=== PATIENT | male | born 1970 | race Caucasian/White ===

== ENCOUNTER 2023-01-29 21:18 | Inpatient (IN) | payer OTHER ==
[2023-01-29 22:17] VITALS: BMI 36.3
[2023-01-30] MEDS ORDERED: ACETAMINOPHEN 325 MG TABLET (FP) PO PRN (08:47)
[2023-01-30] MEDS ORDERED: POLYETHYLENE GLYCOL (HEALTHYLAX) 3350 17 GM PACKET PO PRN (08:47)
[2023-01-30] MEDS ORDERED: ONDANSETRON *ODT* 4 MG TABLET SL PRN (08:47)
[2023-01-30] MEDS ORDERED: NALOXONE HCL 0.4 MG/ML VIAL IM PRN (08:47)
[2023-01-30] MEDS ORDERED: IBUPROFEN 600 MG TABLET (FP) PO PRN (08:47)
[2023-01-30] MEDS ORDERED: LOPERAMIDE HCL 2 MG CAPSULE PO PRN (08:47)
[2023-01-30] MEDS ORDERED: IBUPROFEN 400 MG TABLET (FP) PO PRN (08:47)
[2023-01-30] MEDS ORDERED: MAG HYDROX/AL HYDROX/SIMETH 30 ML UNIT-DOSE CUP PO PRN (08:47)
[2023-01-30] MEDS ORDERED: NICOTINE POLACRILEX 2 MG GUM BUC PRN (08:47)
[2023-01-30] MEDS ORDERED: guaiFENesin 600 MG TABLET.ER (FP) PO PRN (08:47)
[2023-01-30] MEDS ORDERED: NALOXONE HCL (KLOXXADO) 8 MG SPRAY NS PRN (08:47)
[2023-01-30] MEDS ORDERED: BENZOCAINE/MENTHOL (CHLORASEPTIC ) LOZENGE MM PRN (08:47)
[2023-01-30] MEDS ORDERED: BISMUTH SUBSALICYLATE 524 MG/30 ML PO PRN (08:47)
[2023-01-30] MEDS ORDERED: diazePAM 5 MG TABLET PO PRN (08:47)
[2023-01-30] MEDS ORDERED: DICYCLOMINE HCL 10 MG CAPSULE PO PRN (08:47)
[2023-01-30] MEDS ORDERED: BENZONATATE 200 MG CAPSULE PO PRN (08:47)
[2023-01-30] MEDS ORDERED: MAGNESIUM HYDROX 2400MG/30ML ORAL SUSPENSION 30 ML CUP PO PRN (08:47)
[2023-01-30] MEDS ORDERED: NICOTINE 7 MG/24 HOURS TOPICAL PATCH TD ONE (09:49)
[2023-01-30] MEDS ORDERED: PRENATAL VITAMINS W/ FOLIC ACID TABLET (FP) PO ONE (09:50)
[2023-01-30] MEDS: NICOTINE 7 MG/24 HOURS TOPICAL PATCH TD SCH (10:01)
[2023-01-30] MEDS: diazePAM 5 MG TABLET PO SCH ×3 (10:01→22:50)
[2023-01-30] MEDS: PRENATAL VITAMINS W/ FOLIC ACID TABLET (FP) PO SCH (10:01)
[2023-01-30] MEDS ORDERED: diazePAM 5 MG TABLET ONE (10:03)
[2023-01-30] MEDS ORDERED: methaDONE HCL 10 MG TABLET PO ONE (11:00)
[2023-01-30] MEDS ORDERED: diazePAM 5 MG TABLET PO SCH (11:00)
[2023-01-30] MEDS: diazePAM 5 MG TABLET PO PRN (13:18)
[2023-01-30 14:31] LABS: HEMATOCRIT 41.7 % (35.4-49); HEMOGLOBIN 13.6 GM/dL (11.7-16.9); MCH 29.3 pg (25.7-33.7); MCHC 32.6 g/dl (32.0-35.9); MEAN CELL VOLUME 89.9 fl (80-96); MEAN PLT VOLUME 8.4 fl (7.5-11.1); PLATELET COUNT 254 10^3/uL (134-434); RBC 4.64 M/mm3 (4.00-5.60); RDW 14.6 % (11.9-15.9); WHITE BLOOD COUNT 4.3 K/mm3 (4.0-10.0)
[2023-01-30 14:41] LABS: POTASSIUM 4.1 mmol/L (3.5-5.1)
[2023-01-30 15:00] LABS: BILIRUBIN,TOTAL 0.2 mg/dL (0.2-1)
[2023-01-30 15:02] LABS: ALBUMIN 3.2 g/dl (3.4-5.0); BLOOD UREA NITROGEN 11.1 mg/dL (7-18); CALCIUM 8.9 mg/dL (8.5-10.1)
[2023-01-30 15:06] LABS: CREATININE 1.1 mg/dL (0.55-1.3)
[2023-01-30 15:07] LABS: TOT PROT 6.6 g/dl (6.4-8.2)
[2023-01-30] MEDS: hydrOXYzine PAMOATE 25 MG CAPSULE (FP) PO PRN (17:20)
[2023-01-30] MEDS: METHOCARBAMOL 500 MG TABLET PO PRN (17:20)
[2023-01-30 19:00] LABS: HIV INTERPRETATION NEGATIVE (NEGATIVE)
[2023-01-30] MEDS: MELATONIN 5 MG TABLETS PO SCH (22:50)
[2023-01-30] MEDS: THIAMINE HCL 100 MG TABLET (FP) PO SCH (22:50)
[2023-01-31] MEDS: diazePAM 5 MG TABLET PO SCH ×2 (06:04→13:19)
[2023-01-31] MEDS: PRENATAL VITAMINS W/ FOLIC ACID TABLET (FP) PO SCH (10:16)
[2023-01-31] MEDS: diazePAM 5 MG TABLET PO PRN ×2 (10:16→21:08)
[2023-01-31] MEDS: NICOTINE 7 MG/24 HOURS TOPICAL PATCH TD SCH (10:17)
[2023-01-31] MEDS: METHOCARBAMOL 500 MG TABLET PO PRN ×2 (10:17→22:36)
[2023-01-31 14:46] LABS: PH,URINE 5.5 (5.0-8.0); URINE APPEARANCE CLEAR; URINE BILIRUBIN NEGATIVE (NEGATIVE); URINE COLOR DK YELLOW; URINE GLUCOSE (UA) NEGATIVE (NEGATIVE); URINE KETONE TRACE (NEGATIVE); URINE LEUK ESTERASE NEGATIVE (NEGATIVE); URINE NITRITE NEGATIVE (NEGATIVE); URINE PROTEIN NEGATIVE (NEGATIVE)
[2023-01-31] MEDS: hydrOXYzine PAMOATE 25 MG CAPSULE (FP) PO PRN (22:36)
[2023-01-31] MEDS: MELATONIN 5 MG TABLETS PO SCH (22:36)
[2023-01-31] MEDS: THIAMINE HCL 100 MG TABLET (FP) PO SCH (22:36)
[2023-02-01] MEDS: diazePAM 5 MG TABLET PO SCH ×3 (00:10→17:32)
[2023-02-01] MEDS ORDERED: diazePAM 5 MG TABLET PO SCH (06:00)
[2023-02-01] MEDS: NICOTINE 7 MG/24 HOURS TOPICAL PATCH TD SCH (09:26)
[2023-02-01] MEDS: PRENATAL VITAMINS W/ FOLIC ACID TABLET (FP) PO SCH (09:28)
[2023-02-01] MEDS: diazePAM 5 MG TABLET PO PRN ×2 (10:21→20:08)
[2023-02-01] MEDS: THIAMINE HCL 100 MG TABLET (FP) PO SCH (22:25)
[2023-02-01] MEDS: hydrOXYzine PAMOATE 25 MG CAPSULE (FP) PO PRN (22:25)
[2023-02-01] MEDS: MELATONIN 5 MG TABLETS PO SCH (22:25)
[2023-02-02] MEDS ORDERED: diazePAM 5 MG TABLET PO ONE (06:00)
[2023-02-02] MEDS ORDERED: diazePAM 5 MG TABLET PO SCH (06:00)
[2023-02-02] MEDS: PRENATAL VITAMINS W/ FOLIC ACID TABLET (FP) PO SCH (10:21)
[2023-02-02] MEDS: NICOTINE 7 MG/24 HOURS TOPICAL PATCH TD SCH (10:21)
[2023-02-02] MEDS: hydrOXYzine PAMOATE 25 MG CAPSULE (FP) PO PRN ×2 (10:22→22:10)
[2023-02-02] MEDS: METHOCARBAMOL 500 MG TABLET PO PRN (22:10)
[2023-02-02] MEDS: MELATONIN 5 MG TABLETS PO SCH (22:10)
[2023-02-02] MEDS: THIAMINE HCL 100 MG TABLET (FP) PO SCH (22:10)
[2023-02-02 23:06] VITALS: PULSE 70
[2023-02-03] MEDS ORDERED: diazePAM 5 MG TABLET PO ONE ×2 (05:00→06:00)
[2023-02-03 07:26] VITALS: BP 112/75; RESP 18; TEMP 97.6
[2023-02-03] MEDS: PRENATAL VITAMINS W/ FOLIC ACID TABLET (FP) PO SCH (10:03)
[2023-02-03] MEDS: NICOTINE 7 MG/24 HOURS TOPICAL PATCH TD SCH (10:03)
== END 2023-02-03 10:10 | disposition home or self-care (01) | DRG 773 ==
LOC: YASAS 21:18 → Y6N 01-30 10:08
PROVIDERS: ADMIT Allergy & Immunology; ATTEND Surgery
PROC: HZ2ZZZZ Detoxification Services for Substance Abuse Treatment (ICD-10-PCS; principal; 2023-01-30)
DX: F13.230 Sedative, hypnotic or anxiolytic dependence with withdrawal, uncomplicated (principal); F11.20 Opioid dependence, uncomplicated; F17.210 Nicotine dependence, cigarettes, uncomplicated; F31.9 Bipolar disorder, unspecified; F43.10 Post-traumatic stress disorder, unspecified; R30.0 Dysuria; R73.9 Hyperglycemia, unspecified
CPT/HCPCS: 36415; 80053; 81003; 83036; 85027; 86780; 87389; 87635

== ENCOUNTER 2023-02-18 18:17 | Inpatient (IN) | payer OTHER ==
[2023-02-18 20:20] VITALS: BMI 34.0
[2023-02-18] MEDS ORDERED: hydrOXYzine PAMOATE 25 MG CAPSULE (FP) PO PRN (21:46)
[2023-02-18] MEDS ORDERED: BENZOCAINE/MENTHOL (CHLORASEPTIC ) LOZENGE MM PRN (21:46)
[2023-02-18] MEDS ORDERED: POLYETHYLENE GLYCOL (HEALTHYLAX) 3350 17 GM PACKET PO PRN (21:46)
[2023-02-18] MEDS ORDERED: NALOXONE HCL (KLOXXADO) 8 MG SPRAY NS PRN (21:46)
[2023-02-18] MEDS ORDERED: IBUPROFEN 600 MG TABLET (FP) PO PRN (21:46)
[2023-02-18] MEDS ORDERED: IBUPROFEN 400 MG TABLET (FP) PO PRN (21:46)
[2023-02-18] MEDS ORDERED: ACETAMINOPHEN 325 MG TABLET (FP) PO PRN (21:46)
[2023-02-18] MEDS ORDERED: NALOXONE HCL 0.4 MG/ML VIAL IM PRN (21:46)
[2023-02-18] MEDS ORDERED: DICYCLOMINE HCL 10 MG CAPSULE PO PRN (21:46)
[2023-02-18] MEDS ORDERED: guaiFENesin 600 MG TABLET.ER (FP) PO PRN (21:46)
[2023-02-18] MEDS ORDERED: NICOTINE POLACRILEX 2 MG GUM BUC PRN (21:46)
[2023-02-18] MEDS ORDERED: LOPERAMIDE HCL 2 MG CAPSULE PO PRN (21:46)
[2023-02-18] MEDS ORDERED: MAGNESIUM HYDROX 2400MG/30ML ORAL SUSPENSION 30 ML CUP PO PRN (21:46)
[2023-02-18] MEDS ORDERED: BISMUTH SUBSALICYLATE 524 MG/30 ML PO PRN (21:46)
[2023-02-18] MEDS ORDERED: ONDANSETRON *ODT* 4 MG TABLET SL PRN (21:46)
[2023-02-18] MEDS ORDERED: MAG HYDROX/AL HYDROX/SIMETH 30 ML UNIT-DOSE CUP PO PRN (21:46)
[2023-02-18] MEDS ORDERED: BENZONATATE 200 MG CAPSULE PO PRN (21:46)
[2023-02-18] MEDS ORDERED: MELATONIN 5 MG TABLETS PO SCH (22:00)
[2023-02-18] MEDS ORDERED: THIAMINE HCL 100 MG TABLET (FP) PO SCH (22:00)
[2023-02-19] MEDS: diazePAM 5 MG TABLET PO SCH ×4 (01:58→17:26)
[2023-02-19] MEDS: diazePAM 5 MG TABLET PO PRN ×2 (01:59→12:50)
[2023-02-19 09:29] VITALS: RESP 18
[2023-02-19] MEDS ORDERED: methaDONE HCL 10 MG TABLET PO ONE (10:00)
[2023-02-19] MEDS ORDERED: NICOTINE 14 MG/24 HOURS TOPICAL PATCH TD SCH (10:00)
[2023-02-19] MEDS ORDERED: PRENATAL VITAMINS W/ FOLIC ACID TABLET (FP) PO SCH (10:00)
[2023-02-19 10:59] LABS: HEMATOCRIT 38.8 % (35.4-49); MCH 29.7 pg (25.7-33.7); MCHC 33.5 g/dl (32.0-35.9); MEAN CELL VOLUME 88.5 fl (80-96); MEAN PLT VOLUME 8.3 fl (7.5-11.1); PLATELET COUNT 264 10^3/uL (134-434); RBC 4.38 M/mm3 (4.00-5.60); RDW 13.8 % (11.9-15.9); WHITE BLOOD COUNT 5.5 K/mm3 (4.0-10.0)
[2023-02-19 11:55] LABS: POTASSIUM 4.1 mmol/L (3.5-5.1)
[2023-02-19 12:03] LABS: CALCIUM 8.8 mg/dL (8.5-10.1)
[2023-02-19 12:04] LABS: ALBUMIN 2.9 g/dl (3.4-5.0); BLOOD UREA NITROGEN 14.6 mg/dL (7-18)
[2023-02-19 12:07] LABS: CREATININE 0.9 mg/dL (0.55-1.3)
[2023-02-19 12:09] LABS: BILIRUBIN,TOTAL 0.2 mg/dL (0.2-1)
[2023-02-19 12:10] LABS: TOT PROT 6.3 g/dl (6.4-8.2)
[2023-02-19 17:53] VITALS: BP 111/78; PULSE 67; TEMP 97.6
[2023-02-20] MEDS ORDERED: methaDONE HCL 10 MG TABLET PO SCH (06:00)
[2023-02-20] MEDS ORDERED: diazePAM 5 MG TABLET PO SCH (06:00)
[2023-02-21] MEDS ORDERED: diazePAM 5 MG TABLET PO SCH (06:00)
[2023-02-22] MEDS ORDERED: diazePAM 5 MG TABLET PO ONE (06:00)
== END 2023-02-19 20:04 | disposition left against medical advice (07) | DRG 770 ==
LOC: YASAS 18:17 → Y6N 22:44
PROVIDERS: ADMIT Allergy & Immunology; ATTEND Surgery
PROC: HZ2ZZZZ Detoxification Services for Substance Abuse Treatment (ICD-10-PCS; principal; 2023-02-18)
DX: F13.230 Sedative, hypnotic or anxiolytic dependence with withdrawal, uncomplicated (principal); F11.20 Opioid dependence, uncomplicated; F17.210 Nicotine dependence, cigarettes, uncomplicated; F19.282 Other psychoactive substance dependence with psychoactive substance-induced sleep disorder; F19.24 Other psychoactive substance dependence with psychoactive substance-induced mood disorder; F39 Unspecified mood [affective] disorder; F43.10 Post-traumatic stress disorder, unspecified; U07.1 COVID-19; H91.92 Unspecified hearing loss, left ear; I10 Essential (primary) hypertension; Z56.0 Unemployment, unspecified; Z59.00 Homelessness unspecified
CPT/HCPCS: 36415; 80053; 85027; 86780; 87635; 87811

== ENCOUNTER 2025-03-22 14:42 | Inpatient (IN) | payer OTHER ==
[2025-03-22] MEDS ORDERED: IBUPROFEN 600 MG TABLET (FP) PO PRN (15:53)
[2025-03-22] MEDS ORDERED: BENZOCAINE/MENTHOL (CHLORASEPTIC ) LOZENGE MM PRN (15:53)
[2025-03-22] MEDS ORDERED: hydrOXYzine PAMOATE 25 MG CAPSULE (FP) PO PRN (15:53)
[2025-03-22] MEDS ORDERED: ACETAMINOPHEN 325 MG TABLET (FP) PO PRN (15:53)
[2025-03-22] MEDS ORDERED: IBUPROFEN 400 MG TABLET (FP) PO PRN (15:53)
[2025-03-22] MEDS ORDERED: NICOTINE POLACRILEX 2 MG GUM BUC PRN (15:53)
[2025-03-22] MEDS ORDERED: MAG HYDROX/AL HYDROX/SIMETH 30 ML UNIT-DOSE CUP PO PRN (15:53)
[2025-03-22] MEDS ORDERED: BENZONATATE 200 MG CAPSULE PO PRN (15:53)
[2025-03-22] MEDS ORDERED: guaiFENesin 600 MG TABLET.ER (FP) PO PRN (15:53)
[2025-03-22] MEDS ORDERED: MAGNESIUM HYDROX 2400MG/30ML ORAL SUSPENSION 30 ML CUP PO PRN (15:53)
[2025-03-22] MEDS ORDERED: POLYETHYLENE GLYCOL (HEALTHYLAX) 3350 17 GM PACKET PO PRN (15:53)
[2025-03-22] MEDS ORDERED: LOPERAMIDE HCL 2 MG CAPSULE PO PRN (15:53)
[2025-03-22] MEDS ORDERED: METHOCARBAMOL 500 MG TABLET PO PRN (15:53)
[2025-03-22] MEDS: THIAMINE 100 MG TABLET PO SCH (21:36)
[2025-03-22] MEDS: MELATONIN 5 MG TABLETS PO SCH (21:36)
[2025-03-23] MEDS: PRENATAL VITAMINS W/ FOLIC ACID TABLET (FP) PO SCH (06:26)
[2025-03-23] MEDS: NICOTINE 21 MG/24 HOURS TOPICAL PATCH TD SCH (06:26)
[2025-03-23 09:32] VITALS: RESP 18
[2025-03-23] MEDS ORDERED: DICYCLOMINE HCL 10 MG CAPSULE PO PRN (11:44)
[2025-03-23] MEDS ORDERED: BISMUTH SUBSALICYLATE 524 MG/30 ML PO PRN (11:44)
[2025-03-23] MEDS: ONDANSETRON *ODT* 4 MG TABLET SL PRN (13:25)
[2025-03-23] MEDS ORDERED: QUEtiapine FUMARATE 100 MG TABLET (FP) ONE (21:02)
[2025-03-24 06:42] VITALS: BP 100/67; PULSE 90; TEMP 97
== END 2025-03-24 13:18 | disposition left against medical advice (07) | DRG 770 ==
LOC: YASAS 14:42 → Y3NR 14:43 → Y3E 03-23 10:09
PROVIDERS: ADMIT Psychiatry & Neurology Pain Medicine; ATTEND Psychiatry & Neurology Pain Medicine
PROC: HZ42ZZZ Group Counseling for Substance Abuse Treatment, Cognitive-Behavioral (ICD-10-PCS; principal; 2025-03-22)
DX: F13.20 Sedative, hypnotic or anxiolytic dependence, uncomplicated (principal); F11.20 Opioid dependence, uncomplicated; F17.210 Nicotine dependence, cigarettes, uncomplicated; F31.9 Bipolar disorder, unspecified; F19.282 Other psychoactive substance dependence with psychoactive substance-induced sleep disorder; F19.280 Other psychoactive substance dependence with psychoactive substance-induced anxiety disorder; F19.24 Other psychoactive substance dependence with psychoactive substance-induced mood disorder; F41.9 Anxiety disorder, unspecified; F41.0 Panic disorder [episodic paroxysmal anxiety]; F39 Unspecified mood [affective] disorder; F43.10 Post-traumatic stress disorder, unspecified; H91.92 Unspecified hearing loss, left ear; I10 Essential (primary) hypertension; Z86.73 Personal history of transient ischemic attack (TIA), and cerebral infarction without residual deficits
CPT/HCPCS: 36415; 86803; Q0162